=== PATIENT | female | born 1980 ===

== ENCOUNTER 2017-10-03 19:49 | Emergency (ER) | payer OTHER ==
--- NOTE | 2017-10-03 21:36 | C.PDOC ---
History Of Present Illness 37 y/o female with no medical problems c/o sore throat, subjective fever, chills , bodyaches for the last week. pt with with diffuse headache today; took 600 mg advil at 5 am, at 11 took 2 tabs 600 mg and had brief relief from pain which returned. +nausea, +photophobia. pt c/o neck pain, points to submandibular area. no neck stiffness. Time Seen by Provider: 10/03/17 21:02 Chief Complaint (Nursing): Flu-like Symptoms History Per: Patient, Family History/Exam Limitations: no limitations Onset/Duration Of Symptoms: Days (7) Current Symptoms Are (Timing): Worse Location Of Pain: Throat, Diffuse Myalgias, Headache Sick Contacts (Context): None Associated Symptoms: denies: Cough, Nasal Congestion, Vomiting, Diarrhea Ear Symptoms: Bilateral: None Severity: Moderate Recent travel outside of the [place]: No Past Medical History Reviewed: Historical Data, Nursing Documentation, Vital Signs Vital Signs: Last Vital Signs Temp 97.9 F 10/04/17 00:31 Pulse 96 H 10/04/17 00:31 Resp 18 10/04/17 00:31 BP 100/61 10/04/17 00:31 Pulse Ox 98 10/05/17 14:05 - Medical History PMH: No Chronic Diseases Family History: States: Unknown Family Hx - Social History Hx Alcohol Use: No Hx Substance Use: No - Immunization History Hx Tetanus Toxoid Vaccination: No Hx Influenza Vaccination: No Hx Pneumococcal Vaccination: No Review Of Systems ENT: Positive for: Throat Pain. Negative for: Ear Pain, Nose Pain, Nose Discharge, Nose Congestion Cardiovascular: Negative for: Chest Pain Respiratory: Negative for: Cough, Shortness of Breath Gastrointestinal: Positive for: Nausea. Negative for: Vomiting, Abdominal Pain Musculoskeletal: Positive for: Neck Pain (submandibular) Skin: Negative for: Rash Neurological: Positive for: Headache. Negative for: Weakness, Numbness, Dizziness Physical Exam - Physical Exam Appears: Non-toxic, Other (appears umcomfortable) Skin: Warm, Dry Head: Atraumatic, Normacephalic Eye(s): bilateral: Normal Inspection, PERRL, EOMI Ear(s): Bilateral: Normal Nose: No Discharge Oral Mucosa: Moist Tongue: Normal Appearing Lips: Normal Appearing Throat: Erythema, No Exudate, Other (no tonsillar enlargement) Neck: No Midline Cervical Tenderness, Supple, Other (no meningeal signs) Lymphatic: Adenopathy (bilateral tender submandibluar nodes) Cardiovascular: Rhythm Regular, No Murmur Respiratory: No Decreased Breath Sounds, No Wheezing Gastrointestinal/Abdominal: Soft, No Tenderness ED Course And Treatment O2 Sat by Pulse Oximetry: 98 Medical Decision Making Medical Decision Making: flu like symptoms for one week with severe headache x 1 day. upreg, head ct, re- eval. [address], pt feeling much better after medication , will d/c home. pt appears much more comfortable, eyes open,photphobia resolved. d/c home with pmd f/u Disposition Counseled Patient/Family Regarding: Studies Performed, Diagnosis, Need For Followup, Rx Given - Disposition Referrals: [facility] [Outside] Disposition: HOME/ ROUTINE Disposition Time: 00:34 Condition: IMPROVED Additional Instructions: Please follow up in medical clinic. Tylenol for pain if needed. Return to ER for any worse symptoms. Prescriptions: Acetaminophen [Tylenol 325mg tab] 650 mg PO Q4 #50 tab Instructions: Headache, Adult (DC) Forms: Gen Discharge Inst [place]ian, [facility] ([place]ian) Print Language: AUSTRIAN - Clinical Impression Clinical Impression: Headache
--- NOTE | 2017-10-03 22:36 | CT ---
EXAM: CT Head Without Intravenous Contrast EXAM DATE/TIME: 10/03/2017 9:33 PM CLINICAL HISTORY: 37 years old, female; Pain; Headache; Headache not specified; Additional info: Diffuse headache TECHNIQUE: Axial computed tomography images of the head/brain without intravenous contrast. All CT scans at this facility use one or more dose reduction techniques, viz.: automated exposure control; ma/kV adjustment per patient size (including targeted exams where dose is matched to indication; i.e. head); or iterative reconstruction technique. Coronal and sagittal reformatted images were created and reviewed. COMPARISON: No relevant prior studies available. FINDINGS: No intracranial hemorrhage. No intracranial edema. No evidence of infarct. The sinuses and mastoid air cells are clear. IMPRESSION: No acute findings.
[2017-10-04 00:33] VITALS: BP 100/61; PULSE 96; RESP 18; TEMP 97.9
[2017-10-04 00:36] VITALS: O2SAT 98
== END 2017-10-04 00:45 | disposition home or self-care (01) ==
LOC: C.ER 19:49
DX: R51 Headache (principal)
CPT/HCPCS: 70450; 87070; 87430; 96374; 99284; J2765